=== PATIENT | female | born 1960 ===

== ENCOUNTER 2020-08-30 08:34 | Day surgery (SDC) | payer OTHER ==
[2020-08-30 08:26] LABS: BLOOD UREA NITROGEN,BUN 15 mg/dL (7.0-18.0); CARBON DIOXIDE,CO2 27.7 mmol/L (21.0-32.0); CHLORIDE,CL 101 mmol/L (98-107); GLUCOSE RANDOM 103 mg/dL (74-106); POTASSIUM,K 3.7 mmol/L (3.5-5.1); SODIUM,NA 140 mmol/L (136-145)
[~2020-08-30 08:34] MED LIST: Clindamycin Phosphate in D5W 900 MG in Premix Bag 1 BAG IV SCH; Gentamicin 420 MG in Sodium Chloride 0.9% 100 ML IV SCH; Gentamicin Pediatric 10 MG/ML 2 ML SDV IV ONE; Midazolam 1 MG/ML 2 ML SDV ONE; Propofol 200 MG/20 ML SDV ONE; Sodium Chloride 0.9% 10 ML SDV IV PRN; Sodium Chloride 0.9% 10 ML Syringe FLUSH PRN; Sodium Chloride 0.9% 2.5 ML Syringe FLUSH PRN; fentaNYL 100 MCG/2 ML SDV ONE
[2020-08-30] MEDS ORDERED: Fluorescein 5 ML Vial ONE (08:55)
--- NOTE | 2020-08-30 09:07 | PCM.PREANE ---
Preanesthetic Assessment - Anesthesia/Transfusion/Family Hx Anesthesia History: Prior Anesthesia Without Reaction Family History of Anesthesia Reaction: No Transfusion History: No Prior Transfusion(s) - Review of Systems General: No Symptoms Pulmonary: No Symptoms Cardiovascular: No Symptoms Gastrointestinal: No Symptoms Neurological: No Symptoms Other: Reports: None - Physical Assessment NPO Status Date: 08/30/20 NPO Status Time: 00:05 Height: 5 ft 5 in Weight: 189 lb ASA Class: 2 Mental Status: Alert & Oriented x3 Airway Class: Mallampati = 2 Dentition: Reports: Normal Dentition, Partial ROM/Head Extension: Full Lungs: Clear to Auscultation, Normal Respiratory Effort Cardiovascular: Regular Rate, Regular Rhythm - Lab Values: Laboratory Last Values WBC 7.89 K/uL (4.0-11.0) 08/30/20 07:41 RBC 4.88 M/uL (4.30-5.90) 08/30/20 07:41 Hgb 14.1 g/dL (12.0-16.0) 08/30/20 07:41 Hct 42.8 % (36.0-46.0) 08/30/20 07:41 MCV 87.7 fL (80.0-98.0) 08/30/20 07:41 MCH 28.9 pg (27.0-32.0) 08/30/20 07:41 MCHC 32.9 g/dL (31.0-37.0) 08/30/20 07:41 RDW Std Deviation 43.1 fl (28.0-62.0) 08/30/20 07:41 RDW Coeff of Andrea 13 % (11.0-15.0) 08/30/20 07:41 Plt Count 352 K/uL (150-400) 08/30/20 07:41 MPV 10.20 fL (7.40-12.00) 08/30/20 07:41 Nucleated RBC % 0.0 /100WBC 08/30/20 07:41 Nucleated RBCs # 0 K/uL 08/30/20 07:41 Sodium 140 mmol/L (136-145) 08/30/20 07:41 Potassium 3.7 mmol/L (3.5-5.1) 08/30/20 07:41 Chloride 101 mmol/L (98-107) 08/30/20 07:41 Carbon Dioxide 27.7 mmol/L (21.0-32.0) 08/30/20 07:41 BUN 15 mg/dL (7.0-18.0) 08/30/20 07:41 Creatinine 0.9 mg/dL (0.6-1.0) 08/30/20 07:41 Est Cr Clr Drug Dosing 59.81 mL/min 08/30/20 07:41 Estimated GFR (MDRD) > 60.0 ml/min 08/30/20 07:41 Glucose 103 mg/dL (74-106) 08/30/20 07:41 Calcium 9.0 mg/dL (8.5-10.1) 08/30/20 07:41 SARS-CoV-2 RNA (THANIA) NEGATIVE (NEGATIVE) 08/30/20 07:24 Blood Type O POSITIVE 08/30/20 07:45 Antibody Screen NEGATIVE 08/30/20 07:45 - Allergies Allergies/Adverse Reactions: Allergies Allergy/AdvReac Type Severity Reaction Status Date / Time codeine Allergy Rash Verified 08/24/20 08:45 Penicillins Allergy Cannot Verified 08/24/20 08:45 Remember Sulfa (Sulfonamide Allergy rash/diarrh Verified 08/24/20 08:45 Antibiotics) ea - Anesthesia Plan Pre-Op Medication Ordered: None - Acknowledgements Anesthesia Type Planned: General Anesthesia Pt an Appropriate Candidate for the Planned Anesthesia: Yes Alternatives and Risks of Anesthesia Discussed w Pt/Guardian: Yes Pt/Guardian Understands and Agrees with Anesthesia Plan: Yes Additional Comments: npo after mn no cv problems asthma prn inhalers tob none etoh occ obesity bmi 31 par no questions PreAnesthesia Questionnaire HEENT History: Reports: Other (See Below) Other HEENT History: wears glasses, top and bottom partial Cardiovascular History: Reports: None Respiratory History: Reports: Asthma Gastrointestinal History: Reports: Other (See Below) Other Gastrointestinal History: occasional heartburn Genitourinary History: Reports: None REGULATORY COMPLIANCE OFFICER History: Reports: Endometriosis, , Spontaneous Musculoskeletal History: Reports: Back Pain, Chronic Neurological History: Reports: Migraines Psychiatric History: Reports: None Endocrine/Metabolic History: Reports: Hypothyroidism, Obesity/BMI 30+ Hematologic History: Reports: None Immunologic History: Reports: None Oncologic (Cancer) History: Reports: None Dermatologic History: Reports: None - Past Surgical History Head Surgeries/Procedures: Reports: None HEENT Surgical History: Reports: None Cardiovascular Surgical History: Reports: None Respiratory Surgical History: Reports: None GI Surgical History: Reports: Appendectomy Female Surgical History: Reports: Section, Hysterectomy, Salpingo- Oophorectomy, Other (See Below) Other Female Surgeries/Procedures: laparoscopy, laparotomy for endometriosis, abd hysterectomy with bladder suspension Endocrine Surgical History: Reports: None Neurological Surgical History: Reports: None Musculoskeletal Surgical History: Reports: None Oncologic Surgical History: Reports: None Dermatological Surgical History: Reports: None - SUBSTANCE USE Tobacco Use Status *Q: Never Tobacco User Recreational Drug Use History: No - HOME MEDS Home Medications: Home Meds Albuterol Sulfate [Albuterol Sulfate HFA] 1 - 2 puff INH ASDIRECTED PRN 08/24/20 [History] Aspirin [Adult Aspirin Regimen] 81 mg PO DAILY 08/24/20 [History] Celecoxib 200 mg PO DAILY 08/24/20 [History] Fish Oil/DHA/EPA [Fish Oil 1,200 MG] 2,400 mg PO DAILY 08/24/20 [History] L.acidoph,Paracasei, B.lactis [Probiotic] 1 tab PO DAILY 08/24/20 [History] Levothyroxine Sodium [Synthroid] 75 mcg PO DAILY 08/24/20 [History] - CURRENT (IN HOUSE) MEDS Current Meds: Current Medications Clindamycin Phosphate 900 mg/ (Premix) 50 mls @ 89.286 mls/hr IV ONCALL CHARLES Gentamicin Sulfate 420 mg/ (Sodium Chloride) 110.5 mls @ 221 mls/hr IV ONCALL CHARLES Sodium Chloride (Sodium Chloride 0.9% 10 Ml Syringe) 10 ml FLUSH ASDIRECTED PRN PRN Reason: Keep Vein Open Sodium Chloride (Sodium Chloride 0.9% 2.5 Ml Syringe) 2.5 ml FLUSH ASDIRECTED PRN PRN Reason: Keep Vein Open Sodium Chloride (Sodium Chloride 0.9% 10 Ml Sdv) 10 ml IV ASDIRECTED PRN PRN Reason: IV Use Discontinued Medications Fentanyl (Fentanyl 100 Mcg/2 Ml Sdv) Confirm Administered Dose 100 mcg .ROUTE .STK-MED ONE Stop: 08/30/20 07:03 Fluorescein Sodium (Fluorescein 5 Ml Vial) Confirm Administered Dose 5 ml .ROUTE .STK-MED ONE Stop: 08/30/20 08:56 Midazolam HCl (Midazolam 1 Mg/Ml 2 Ml Sdv) Confirm Administered Dose 2 mg .ROUTE .STK-MED ONE Stop: 08/30/20 07:03 Propofol (Propofol 200 Mg/20 Ml Sdv) Confirm Administered Dose 200 mg .ROUTE .STK-MED ONE Stop: 08/30/20 07:03
[2020-08-30] MEDS: Lactated Ringers 1,000 ML IV SCH ×2 (09:18→22:25)
[2020-08-30] MEDS ORDERED: Ketorolac 30 MG/ML SDV ONE (10:04)
[2020-08-30] MEDS ORDERED: Ondansetron 4 MG/2 ML SDV ONE (10:04)
[2020-08-30] MEDS ORDERED: Ketorolac 30 MG/ML SDV IVPUSH PRN (10:39)
[2020-08-30] MEDS ORDERED: Ketorolac 30 MG/ML SDV IVPUSH ONE (10:39)
[2020-08-30] MEDS ORDERED: Ondansetron 4 MG/2 ML SDV IVPUSH PRN (10:39)
[2020-08-30] MEDS ORDERED: Promethazine 25 MG/ML SDV IM PRN (10:39)
[2020-08-30] MEDS ORDERED: Acetaminophen/oxyCODONE 325-5 MG Tab PO PRN ×2 (10:39)
[2020-08-30] MEDS ORDERED: Lactated Ringers 1,000 ML IV SCH (10:45)
--- NOTE | 2020-08-30 10:51 | PCM.OPNOTE ---
- General Post-Op/Procedure Note Date of Surgery/Procedure: 08/30/20 Operative Procedure(s): Anterior/posterior/enterocele repair Findings: 3rd degree rectocele/enterocele with cystocele Pre Op Diagnosis: Symptomatic cystocele/rectocele/enterocele Post-Op Diagnosis: Same Anesthesia Technique: General ET Tube Primary Surgeon: Miriam Gleason Acoustic Engineer: Tiffany Dennis Fluid Replacement, Intraop: 900 EBL in mLs: 50 Complications: none known Condition: Stable Free Text/Narrative:: Dictation [id number]
[2020-08-30] MEDS ORDERED: Acetaminophen 650 MG in Premix Bag 1 BAG IV ONE (11:00)
[2020-08-30] MEDS ORDERED: Acetaminophen 1,000 MG in Premix Bag 1 BAG IV ONE (11:00)
[2020-08-30] MEDS: fentaNYL 100 MCG/2 ML SDV IVPUSH SCH ×2 (11:07→11:17)
--- NOTE | 2020-08-30 11:30 | PCM.POSTAN ---
POST ANESTHESIA ASSESSMENT - MENTAL STATUS Mental Status: Alert (no anesthetic problems), Oriented - VITAL SIGNS Vital Signs: Last Vital Signs Temp 97.7 F 08/30/20 10:35 Pulse 68 08/30/20 11:25 Resp 12 08/30/20 11:25 BP 107/61 08/30/20 11:25 Pulse Ox 98 08/30/20 11:25 - RESPIRATORY Respiratory Status: Respiratory Rate WNL, Airway Patent, O2 Saturation Stable - CARDIOVASCULAR CV Status: Pulse Rate WNL, Blood Pressure Stable - GASTROINTESTINAL GI Status: No Symptoms - POST OP HYDRATION Hydration Status: Adequate & Stable
[2020-08-30] MEDS: Morphine 4 MG/ML Syringe IVPUSH PRN ×3 (12:30→21:00)
--- NOTE | 2020-08-30 13:01 | OR ---
SURGEON: Miriam Gleason M.D. DATE OF PROCEDURE: 08/30/2020 PREOPERATIVE DIAGNOSES: Symptomatic cystocele, rectocele with enterocele. POSTOPERATIVE DIAGNOSES: Symptomatic cystocele, rectocele with enterocele. PROCEDURE: Anterior-posterior repair with enterocele plication. PRIMARY SURGEON: Miriam Gleason MD OFFSET PRINTING PRESSMEN: MD Sonny ANESTHESIA: General endotracheal anesthesia. FLUIDS: 900 mL of crystalloid. ESTIMATED BLOOD LOSS: 50 mL. COMPLICATIONS: None Known. FINDINGS: A third-degree rectocele, enterocele, and cystocele. DISPOSITION: The patient to PACU in stable condition. PROCEDURE DETAILS: Debra is a 60-year-old female who has ongoing difficulties with symptomatic pelvic organ prolapse. She has opted to proceed with surgical intervention. Risks of procedure were discussed with her. Proper consent was obtained. The patient was taken to the operating room where she underwent general endotracheal anesthesia, was placed in modified dorsal lithotomy position, and was prepped and draped in the usual sterile fashion. Garcia to gravity. Received prophylactic antibiotics. Time-out was performed. Hips were gently flexed as I am aware she had some tightness within her hips and hip flexors, so did not overflex them by any means. A Ezio was placed in the vagina. Attention was turned to the anterior compartment defect. At the base of the defect, near the vaginal cuff, which was well supported. The vaginal cuff was grasped in the midline on either side. Hydrodissection was performed and then a 10 blade scalpel was utilized to create a midline sagittal vaginal mucosal incision. The edges of vaginal mucosa were grasped on either side with Allis clamps in serial fashion. The overlying mucosa was now gently dissected away from the underlying mucosa sharply and bluntly. Once the stronger muscularis tissue was identified laterally, these edges were reapproximated using some 2-0 Vicryl in inverted mattress suture technique reducing the defect. Excess vaginal mucosa was now trimmed, and the remaining vaginal mucosa was reapproximated using 2-0 Vicryl in continuous running locked fashion. Attention was now turned posteriorly, and Sayre was placed to mobilize the anterior compartment away from the operative field. On either side of the perineum at the 5 o'clock and 7 o'clock positions, Allis clamps were placed. An inverted V-wedge of tissue now dissected using a scalpel. The midline edges of mucosa were now grasped with Allis clamp. Hydrodissection was performed along the vaginal mucosa and then in the midline using Metzenbaum scissors, there was a vaginal cuff incision created sharply and bluntly with further dissection being performed at the same time. The edges of vaginal mucosa were now gently grasped in serial fashion with allis clamps. The majority of the defect was actually enterocele. The enterocele sac was dissected out nicely and able to be reduced using 2 pursestring sutures with #1 Ethibond. The overlying muscular tissue was now reapproximated on either side using inverted mattress suture technique. The remainder of the rectocele defect was repaired using inverted mattress suture technique with 2-0 Vicryl. The excess vaginal mucosa was now trimmed and the remaining mucosa was reapproximated using 2-0 Vicryl in continuous running locked fashion. Perineorrhaphy repair was now performed using 3-0 Vicryl, reapproximating the vaginal cuff at the level of the hymenal ring and then reapproximated the deeper subcutaneous tissue along the perineum followed by subcuticular tissue reducing the defect nicely. Rectal exam was now performed, found to be intact. No sutures were able to be palpated. Glove was changed. Vaginal packing was gently placed. Sponge, instrument, and needle counts were correct x2. The patient tolerated the procedure well overall. She will go to PACU in stable condition. Specimen to Pathology. KIMBERLY / OFELIA /[id number] ADRI
--- NOTE | 2020-08-30 16:16 | PCM.SN.2 ---
- Free Text/Narrative Note: Patient doing well overall. Pain is controlled. Denies nausea. Explained intraoperative findings and procedure. Continue postoperative cares.
[2020-08-30] MEDS: Docusate Sodium 100 MG Cap PO SCH (22:44)
--- NOTE | 2020-08-31 08:23 | PCM.SURGPN ---
- General Info Date of Service: 08/31/20 POD#: 1 Functional Status: Reports: Pain Controlled, Tolerating Diet, Ambulating - Review of Systems General: Denies: Fever, Weakness, Fatigue Pulmonary: Denies: Shortness of Breath Cardiovascular: Denies: Chest Pain, Palpitations, Lightheadedness Gastrointestinal: Denies: Abdominal Pain, Nausea, Vomiting Genitourinary: Denies: Flank Pain Musculoskeletal: Reports: No Symptoms Skin: Reports: No Symptoms Neurological: Reports: No Symptoms Psychiatric: Reports: No Symptoms - Patient Data Vitals - Most Recent: Last Vital Signs Temp 35.8 C L 08/31/20 07:55 Pulse 68 08/31/20 07:55 Resp 20 08/31/20 07:55 BP 109/58 L 08/31/20 07:55 Pulse Ox 99 08/31/20 07:55 Weight - Most Recent: 85.729 kg I&O - Last 24 Hours: Intake & Output 08/30/20 08/31/20 08/31/20 22:59 06:59 14:59 Output Total 425 450 Balance -425 -450 Lab Results Last 24 Hrs: Laboratory Results - last 24 hr 08/30/20 08/30/20 08/30/20 Range/Units 07:24 07:41 07:45 Hgb (12.0-16.0) g/dL Hct (36.0-46.0) % Sodium 140 (136-145) mmol/L Potassium 3.7 (3.5-5.1) mmol/L Chloride 101 (98-107) mmol/L Carbon Dioxide 27.7 (21.0-32.0) mmol/L BUN 15 (7.0-18.0) mg/dL Creatinine 0.9 (0.6-1.0) mg/dL Est Cr Clr Drug Dosing 59.81 mL/min Estimated GFR (MDRD) > 60.0 ml/min Glucose 103 (74-106) mg/dL Calcium 9.0 (8.5-10.1) mg/dL SARS-CoV-2 RNA (THANIA) NEGATIVE (NEGATIVE) Blood Type O POSITIVE Antibody Screen NEGATIVE 08/31/20 Range/Units 05:37 Hgb 11.4 L (12.0-16.0) g/dL Hct 34.9 L (36.0-46.0) % Sodium (136-145) mmol/L Potassium (3.5-5.1) mmol/L Chloride (98-107) mmol/L Carbon Dioxide (21.0-32.0) mmol/L BUN (7.0-18.0) mg/dL Creatinine (0.6-1.0) mg/dL Est Cr Clr Drug Dosing mL/min Estimated GFR (MDRD) ml/min Glucose (74-106) mg/dL Calcium (8.5-10.1) mg/dL SARS-CoV-2 RNA (THANIA) (NEGATIVE) Blood Type Antibody Screen Med Orders - Current: Current Medications Docusate Sodium (Docusate Sodium 100 Mg Cap) 100 mg PO BID [facility] Last Admin: 08/30/20 22:44 Dose: Not Given Documented by: Clindamycin Phosphate 900 mg/ (Premix) 50 mls @ 89.286 mls/hr IV ONCALL [facility] Last Admin: 08/30/20 08:55 Dose: 89.286 mls/hr Documented by: Gentamicin Sulfate 420 mg/ (Sodium Chloride) 110.5 mls @ 221 mls/hr IV ONCALL [facility] Lactated Ringer's (Ringers, Lactated) 1,000 mls @ 125 mls/hr IV ASDIRECTED [facility] Last Admin: 08/30/20 22:25 Dose: 125 mls/hr Documented by: Lactated Ringer's (Ringers, Lactated) 1,000 mls @ 125 mls/hr IV ASDIRECTED [facility] Ketorolac Tromethamine (Ketorolac 30 Mg/Ml Sdv) 30 mg IVPUSH Q6H PRN PRN Reason: Pain (severe 7-10) Stop: 09/04/20 10:39 Morphine Sulfate (Morphine 4 Mg/Ml Syringe) 4 mg IVPUSH Q2H PRN PRN Reason: Pain (severe 7-10) Last Admin: 08/30/20 21:00 Dose: 4 mg Documented by: Ondansetron HCl (Ondansetron 4 Mg/2 Ml Sdv) 4 mg IVPUSH Q6H PRN PRN Reason: Nausea/Vomiting Last Admin: 08/30/20 18:44 Dose: 4 mg Documented by: Oxycodone/Acetaminophen (Acetaminophen/Oxycodone 325-5 Mg Tab) 1 tab PO Q4H PRN PRN Reason: Pain (moderate 4-6) Last Admin: 08/30/20 17:03 Dose: 1 tab Documented by: Oxycodone/Acetaminophen (Acetaminophen/Oxycodone 325-5 Mg Tab) 2 tab PO Q4H PRN PRN Reason: Pain (moderate 4-6) Last Admin: 08/31/20 06:56 Dose: 2 tab Documented by: Promethazine HCl (Promethazine 25 Mg/Ml Sdv) 25 mg IM Q6H PRN PRN Reason: Nausea/Vomiting Last Admin: 08/30/20 22:18 Dose: 25 mg Documented by: Sodium Chloride (Sodium Chloride 0.9% 10 Ml Syringe) 10 ml FLUSH ASDIRECTED PRN PRN Reason: Keep Vein Open Sodium Chloride (Sodium Chloride 0.9% 2.5 Ml Syringe) 2.5 ml FLUSH ASDIRECTED PRN PRN Reason: Keep Vein Open Sodium Chloride (Sodium Chloride 0.9% 10 Ml Sdv) 10 ml IV ASDIRECTED PRN PRN Reason: IV Use Discontinued Medications Fentanyl (Fentanyl 100 Mcg/2 Ml Sdv) Confirm Administered Dose 100 mcg .ROUTE .STK-MED ONE Stop: 08/30/20 07:03 Fentanyl (Fentanyl 100 Mcg/2 Ml Sdv) 50 mcg IVPUSH Q10M CHARLES Stop: 08/30/20 11:16 Last Admin: 08/30/20 11:17 Dose: 50 mcg Documented by: Fluorescein Sodium (Fluorescein 5 Ml Vial) Confirm Administered Dose 0 ml .ROUTE .STK-MED ONE Stop: 08/30/20 08:56 Acetaminophen 650 mg/ Premix 65 mls @ 400 mls/hr IV NOW ONE Stop: 08/30/20 11:09 Acetaminophen 1,000 mg/ Premix 100 mls @ 615.385 mls/hr IV NOW ONE Stop: 08/30/20 11:09 Last Admin: 08/30/20 10:59 Dose: 615.385 mls/hr Documented by: Ketorolac Tromethamine (Ketorolac 30 Mg/Ml Sdv) Confirm Administered Dose 30 mg .ROUTE .STK-MED ONE Stop: 08/30/20 10:05 Ketorolac Tromethamine (Ketorolac 30 Mg/Ml Sdv) 30 mg IVPUSH ONETIME ONE Stop: 08/30/20 10:40 Midazolam HCl (Midazolam 1 Mg/Ml 2 Ml Sdv) Confirm Administered Dose 2 mg .ROUTE .STK-MED ONE Stop: 08/30/20 07:03 Ondansetron HCl (Ondansetron 4 Mg/2 Ml Sdv) Confirm Administered Dose 4 mg .ROUTE .STK-MED ONE Stop: 08/30/20 10:05 Propofol (Propofol 200 Mg/20 Ml Sdv) Confirm Administered Dose 200 mg .ROUTE .STK-MED ONE Stop: 08/30/20 07:03 - Exam General: Alert, Oriented Lungs: Normal Respiratory Effort Cardiovascular: Regular Rate, Regular Rhythm GI/Abdominal Exam: Normal Bowel Sounds, Soft Extremities: Pedal Edema (trace). No: Americo's Sign Skin: Warm, Dry, Intact Neurological: No New Focal Deficit Psy/Mental Status: Alert, Normal Affect, Normal Mood Sepsis Event Note - Evaluation Sepsis Screening Result: No Definite Risk - Focused Exam Vital Signs: Vital Signs Temp Pulse Resp BP Pulse Ox 08/31/20 07:55 35.8 C L 68 20 109/58 L 99 08/31/20 03:50 36.4 C 88 15 114/65 96 08/31/20 01:23 73 111/67 - Problem List & Annotations (1) Cystocele with rectocele SNOMED Code(s): 345786662 Code(s): N81.10 - CYSTOCELE, UNSPECIFIED; N81.6 - RECTOCELE Status: Acute Current Visit: Yes - Problem List Review Problem List Initiated/Reviewed/Updated: Yes - My Orders Last 24 Hours: Active Orders 24 hr Category Date Time Status Patient Status [ADT] Routine ADT 08/30/20 10:39 Active Antiembolic Devices [RC] PER UNIT ROUTINE Care 08/30/20 10:40 Active Notify Provider Intake and Out [RC] ASDIRECTED Care 08/30/20 10:39 Active Notify Provider Vital Signs [RC] ASDIRECTED Care 08/30/20 10:39 Active Oxygen Therapy [RC] ASDIRECTED Care 08/30/20 10:39 Active RT Incentive Spirometry [RC] Q2HWA Care 08/30/20 10:39 Active Ready for Discharge [RC] PER UNIT ROUTINE Care 08/31/20 08:20 Ordered Up With Assistance [RC] PER UNIT ROUTINE Care 08/30/20 10:39 Active Up ad Melissa [RC] PER UNIT ROUTINE Care 08/30/20 10:39 Active Urinary Catheter Removal [RC] Per Unit Routine Care 08/30/20 10:39 Active Vital Signs [RC] PER UNIT ROUTINE Care 08/30/20 10:39 Active Regular Diet [DIET] Diet 08/30/20 Lunch Active Acetaminophen/oxyCODONE [Percocet 325-5 MG] Med 08/30/20 10:39 Active 1 tab PO Q4H PRN Acetaminophen/oxyCODONE [Percocet 325-5 MG] Med 08/30/20 10:39 Active 2 tab PO Q4H PRN Docusate Sodium [Colace] Med 08/30/20 21:00 Active 100 mg PO BID Ketorolac [Toradol] Med 08/30/20 10:39 Active 30 mg IVPUSH Q6H PRN Lactated Ringers [Ringers, Lactated] 1,000 ml Med 08/30/20 09:15 Active IV ASDIRECTED Lactated Ringers [Ringers, Lactated] 1,000 ml Med 08/30/20 10:45 Active IV ASDIRECTED Morphine Med 08/30/20 10:39 Active 4 mg IVPUSH Q2H PRN Ondansetron [Zofran] Med 08/30/20 10:39 Active 4 mg IVPUSH Q6H PRN Promethazine [Phenergan] Med 08/30/20 10:39 Active 25 mg IM Q6H PRN Perineal Care [OM.PC] Per Unit Routine Oth 08/30/20 10:40 Ordered Peripheral IV Discontinue [OM.PC] Routine Oth 08/30/20 10:39 Ordered Remove Vaginal Packing [OM.PC] Per Unit Routine Oth 08/30/20 10:40 Ordered Sequential Compression Device [OM.PC] Per Unit Routine Oth 08/30/20 10:39 Ordered Resuscitation Status Routine Resus Stat 08/30/20 10:39 Ordered Medication Orders Docusate Sodium (Docusate Sodium 100 Mg Cap) 100 mg PO BID [facility] Last Admin: 08/30/20 22:44 Dose: Not Given Documented by: DEBRA Clindamycin Phosphate 900 mg/ (Premix) 50 mls @ 89.286 mls/hr IV ONCALL [facility] Last Admin: 08/30/20 08:55 Dose: 89.286 mls/hr Documented by: CELIA Gentamicin Sulfate 420 mg/ (Sodium Chloride) 110.5 mls @ 221 mls/hr IV ONCALL CHARLES Lactated Ringer's (Ringers, Lactated) 1,000 mls @ 125 mls/hr IV ASDIRECTED [facility] Last Admin: 08/30/20 22:25 Dose: 125 mls/hr Documented by: Infusion: 08/30/20 17:18 Dose: 125 mls/hr Documented by: Admin: 08/30/20 09:18 Dose: 125 mls/hr Documented by: CELIA Lactated Ringer's (Ringers, Lactated) 1,000 mls @ 125 mls/hr IV ASDIRECTED [facility] Ketorolac Tromethamine (Ketorolac 30 Mg/Ml Sdv) 30 mg IVPUSH Q6H PRN PRN Reason: Pain (severe 7-10) Stop: 09/04/20 10:39 Morphine Sulfate (Morphine 4 Mg/Ml Syringe) 4 mg IVPUSH Q2H PRN PRN Reason: Pain (severe 7-10) Last Admin: 08/30/20 21:00 Dose: 4 mg Documented by: Admin: 08/30/20 14:52 Dose: 4 mg Documented by: Admin: 08/30/20 12:30 Dose: 4 mg Documented by: EUSEBIO Ondansetron HCl (Ondansetron 4 Mg/2 Ml Sdv) 4 mg IVPUSH Q6H PRN PRN Reason: Nausea/Vomiting Last Admin: 08/30/20 18:44 Dose: 4 mg Documented by: NATY Oxycodone/Acetaminophen (Acetaminophen/Oxycodone 325-5 Mg Tab) 1 tab PO Q4H PRN PRN Reason: Pain (moderate 4-6) Last Admin: 08/30/20 17:03 Dose: 1 tab Documented by: NATY Oxycodone/Acetaminophen (Acetaminophen/Oxycodone 325-5 Mg Tab) 2 tab PO Q4H PRN PRN Reason: Pain (moderate 4-6) Last Admin: 08/31/20 06:56 Dose: 2 tab Documented by: DEBRA Promethazine HCl (Promethazine 25 Mg/Ml Sdv) 25 mg IM Q6H PRN PRN Reason: Nausea/Vomiting Last Admin: 04/13/21 22:18 Dose: 25 mg Documented by: DEBRA Sodium Chloride (Sodium Chloride 0.9% 10 Ml Syringe) 10 ml FLUSH ASDIRECTED PRN PRN Reason: Keep Vein Open Sodium Chloride (Sodium Chloride 0.9% 2.5 Ml Syringe) 2.5 ml FLUSH ASDIRECTED PRN PRN Reason: Keep Vein Open Sodium Chloride (Sodium Chloride 0.9% 10 Ml Sdv) 10 ml IV ASDIRECTED PRN PRN Reason: IV Use - Assessment Assessment (Free Text/Narrative):: POD 1 status post A&P repair with vaginal enterocele plication - Plan Plan (Free Text/Narrative):: Doing very well overall. Pain is minimal. Rested throughout night after nausea passed. VS and labs are stable. Urine output is good. Vaginal packing removed and cabrales removed. Monitor for ability to void, then may discharge to home. Discharge instructions reviewed. Follow up at [facility] 2 weeks.
[2020-08-31] MEDS ORDERED: Benzocaine/Menthol 20%-0.5% Spray 78 GM Cannister TOP PRN (08:30)
[2020-08-31] MEDS ORDERED: Benzocaine/Menthol 20%-0.5% Spray 78 GM Cannister ONE (08:48)
[2020-08-31] MEDS: Docusate Sodium 100 MG Cap PO SCH (08:51)
== END 2020-08-31 10:45 | disposition home or self-care (01) ==
LOC: MW.SDS 08:34 → MW.OB 09:23 → MW.SDS 08-31 10:45
PROVIDERS: ATTEND Obstetrics & Gynecology
DX: N81.3 Complete uterovaginal prolapse (principal); E03.9 Hypothyroidism, unspecified; J45.909 Unspecified asthma, uncomplicated; E66.9 Obesity, unspecified; Z68.31 Body mass index [BMI] 31.0-31.9, adult; Z01.812 Encounter for preprocedural laboratory examination; Z20.822 Contact with and (suspected) exposure to COVID-19; Z88.0 Allergy status to penicillin; Z88.2 Allergy status to sulfonamides; Z88.6 Allergy status to analgesic agent; Z79.899 Other long term (current) drug therapy; Z98.890 Other specified postprocedural states
CPT/HCPCS: 36415; 57265; 80048; 85014; 85018; 85027; 86850; 86900; 86901; 87635; A9270; J0131; J1580; J2250; J2270; J2405; J2550; J2704; J3010; J3490; J7120; 00942; J1885; U0002